=== PATIENT | male | born 1995 | race Caucasian/White ===

== ENCOUNTER → 2016-06-18 | Outpatient (CLI) | payer OTHER, MEDICAID ==
[~2016-06-18] MED LIST: CONCERTA18 MG PO; ESCITALOPRAM; FISH OIL500 MG PO; LAMICTAL 100MG100 MG PO; LEXAPRO 5MG5 MG PO; LEXAPRO10 MG PO; LORTAB 5/500 501 TAB PO; NORCO 325 MG-51 TAB PO; PRILOSEC 20MG20 MG PO; SEE LIST; SEROQUEL300 MG PO; STRATTERA 40MG40 MG PO; VRAYLAR1.5 MG PO
== END ==
LOC: BHSO 10:52
DX: F31.81 Bipolar II disorder (principal)

== ENCOUNTER → 2016-08-20 | Outpatient (CLI) | payer OTHER, MEDICAID | LOC: BHSO 15:02 | DX: F31.73 Bipolar disorder, in partial remission, most recent episode manic (principal) ==

== ENCOUNTER → 2016-10-06 | Outpatient (CLI) | payer OTHER, MEDICAID | LOC: BHSO 15:02 | DX: F31.73 Bipolar disorder, in partial remission, most recent episode manic (principal) ==

== ENCOUNTER → 2016-12-07 | Outpatient (CLI) | payer OTHER | LOC: BHSO 14:02 | DX: F31.12 Bipolar disorder, current episode manic without psychotic features, moderate (principal) ==

== ENCOUNTER → 2017-02-15 | Outpatient (CLI) | payer OTHER | LOC: BHSO 09:35 | DX: F31.73 Bipolar disorder, in partial remission, most recent episode manic (principal) ==

== ENCOUNTER → 2017-04-04 | Outpatient (CLI) | payer OTHER | LOC: BHSO 09:29 | DX: F31.12 Bipolar disorder, current episode manic without psychotic features, moderate (principal) ==

== ENCOUNTER → 2017-07-08 | Outpatient (CLI) | payer OTHER | LOC: BHSO 15:30 | DX: F31.73 Bipolar disorder, in partial remission, most recent episode manic (principal) | CPT/HCPCS: G0463 ==

== ENCOUNTER 2021-07-17 11:39 | Emergency (ER) | payer BC ==
[~2021-07-17] VITALS: Ht 180.3 cm; Wt 71.8 kg
[2021-07-17 11:54] VITALS: TEMP 97.4
[2021-07-17] MEDS ORDERED: FLEXERIL 1010 MG/TAB PO (12:23)
[2021-07-17 13:10] VITALS: BP 120/81; PULSE 80
== END 2021-07-17 13:05 | disposition home or self-care (01) ==
LOC: COL.ER 11:39
DX: S16.1XXA Strain of muscle, fascia and tendon at neck level, initial encounter (principal); X50.0XXA Overexertion from strenuous movement or load, initial encounter; Y93.B3 Activity, free weights
CPT/HCPCS: J1885

== ENCOUNTER 2023-07-18 00:59 | Emergency (ER) | payer BC ==
[~2023-07-18] VITALS: Ht 182.9 cm; Wt 77.3 kg
[~2023-07-18 00:59] MED LIST changes: +FLEXERIL 1010 MG/TAB PO
[2023-07-18 01:02] VITALS: TEMP 98.3
[2023-07-18] MEDS ORDERED: AlOH3/diphen/Lidoc/MgOH2/Simet Oral Susp 10 ML UD Syringe PO ONE (01:15)
[2023-07-18] MEDS ORDERED: Ibuprofen 400 MG TAB PO ONE (01:15)
[2023-07-18] MEDS ORDERED: Acetaminophen 325 MG TAB PO ONE (01:15)
[2023-07-18 01:23] LABS: STREP A NEGATIVE
[2023-07-18 02:02] VITALS: BP 109/77; PULSE 67
== END 2023-07-18 02:02 | disposition home or self-care (01) ==
LOC: COL.ER 00:59
PROVIDERS: Nurse Practitioner Primary Care
DX: J06.9 Acute upper respiratory infection, unspecified (principal); F17.210 Nicotine dependence, cigarettes, uncomplicated; F17.290 Nicotine dependence, other tobacco product, uncomplicated